=== PATIENT | female | born 1960 | race Two or more races ===

== ENCOUNTER 2017-08-28 15:07 | Outpatient (CLI) | payer OTHER | END 2017-08-28 15:18 | disposition home or self-care (01) | LOC: RAD 501 15:07 | DX: J44.9 Chronic obstructive pulmonary disease, unspecified (principal) ==

== ENCOUNTER 2018-12-17 10:11 | Emergency (ER) | payer OTHER ==
[~2018-12-17] VITALS: Ht 162.6 cm; Wt 61.2 kg
[2018-12-17] MEDS ORDERED: PANTOPRAZOLE SO40 MG (10:23)
[2018-12-17] MEDS ORDERED: ZANTAC300 MG ×2 (10:24)
[2018-12-17] MEDS ORDERED: MEDROLPACK PO ×2 (13:35→14:06)
[2018-12-17] MEDS ORDERED: NAPROXEN500 MG PO (13:35)
[2018-12-17] MEDS ORDERED: RELAGESIC 5001 EACH PO ×2 (14:05→14:06)
== END 2018-12-17 14:17 | disposition home or self-care (01) ==
LOC: ER 10:11
DX: M54.89 Other dorsalgia (principal)

== ENCOUNTER 2019-03-31 15:26 | Emergency (ER) | payer OTHER ==
[~2019-03-31] VITALS: Ht 162.6 cm; Wt 63.0 kg
[~2019-03-31 15:26] MED LIST: MEDROLPACK PO; NAPROXEN500 MG PO; PANTOPRAZOLE SO40 MG; RELAGESIC 5001 EACH PO; ZANTAC300 MG
== END 2019-03-31 21:19 | disposition home or self-care (01) ==
LOC: ER 15:26
DX: G43.909 Migraine, unspecified, not intractable, without status migrainosus (principal)

== ENCOUNTER 2019-07-05 15:16 | Emergency (ER) | payer OTHER ==
[~2019-07-05] VITALS: Ht 154.9 cm; Wt 65.8 kg
[2019-07-05] MEDS ORDERED: CLARITIN10 MG PO (20:39)
[2019-07-05] MEDS ORDERED: TUSNEL LIQUID178 ML PO (20:39)
[2019-07-05] MEDS ORDERED: IPRAT-ALBUT 0.5-3 ML IH (20:39)
[2019-07-05] MEDS ORDERED: DOLOGEN CAPLET1 EACH PO (20:39)
[2019-07-05] MEDS ORDERED: ZITHROMAX500 MG PO (20:39)
== END 2019-07-05 20:58 | disposition home or self-care (01) ==
LOC: ER 15:16
DX: J06.9 Acute upper respiratory infection, unspecified (principal); B96.0 Mycoplasma pneumoniae [M. pneumoniae] as the cause of diseases classified elsewhere; M54.5 Low back pain

== ENCOUNTER → 2019-10-25 | Outpatient (CLI) | payer OTHER ==
[~2019-10-25] MED LIST changes: +CLARITIN10 MG PO; +DOLOGEN CAPLET1 EACH PO; +IPRAT-ALBUT 0.5-3 ML IH; +TUSNEL LIQUID178 ML PO; +ZITHROMAX500 MG PO
== END | disposition home or self-care (01) ==
LOC: MRI 13:15
DX: M54.16 Radiculopathy, lumbar region (principal); M54.5 Low back pain
CPT/HCPCS: 72148